=== PATIENT | male | born 1965 | race Caucasian/White ===

== ENCOUNTER 2016-10-16 17:20 | Emergency (ER) | payer OTHER ==
[2016-10-16 17:34] VITALS: RESP 16; TEMP 98.4
[2016-10-16] MEDS ORDERED: TDAP ADULT 0.5 ML INJ (BOOSTRIX) IM ONE (19:21)
--- NOTE | 2016-10-16 19:23 | EDPHY ---
H & P Smoking Status: Never smoked Time Seen by Provider: 10/16/16 17:31 HPI/ROS: CHIEF COMPLAINT: right thumb laceration HISTORY OF PRESENT ILLNESS: 50-year-old male who is [id number] presents with a thumb laceration to his right thumb from the sharp corner of a metal plate just prior to arrival. Tetanus is not up-to-date. He denies numbness or tingling in his hand, no other complaints. (Ruba Quinonez) Physical Exam: GEN: Awake, alert, oriented, no acute distress RESP: nl resp effort MSK: Right thumb with full flexion and extension against resistance at IP and MCP joint, 2 point discrimination intact, cap refill less than 2 seconds SKIN: 0.5 cm superficial laceration palmar aspect of left thumb just proximal to MCP joint (Ruba Quinonez) Constitutional: Initial Vital Signs Temperature (C) 36.9 C 10/16/16 17:31 Heart Rate 73 10/16/16 17:31 Respiratory Rate 16 10/16/16 17:31 Blood Pressure 143/92 H 10/16/16 17:31 O2 Sat (%) 96 10/16/16 17:31 O2 Delivery Mode Room Air Allergies/Adverse Reactions: No Known Allergies Allergy (Verified 10/16/16 17:29) Home Medications: Medication Instructions Recorded Aspirin 03/08/14 Crestor 03/08/14 Toprol Xl 25 mg (RX) 03/08/14 Zetia 10 MG (RX) 03/08/14 Albuterol 10/16/16 Glucosamine & Chondroitin Cap 10/16/16 Multivitamin 10/16/16 Vitamin C 10/16/16 MDM/Departure - [facility] Procedures: Procedure: Laceration repair. Verbal consent was obtained from the patient. The 0.5 cm laceration on the right thumb was anesthetized using 1% lidocaine without epinephrine. The wound was carefully irrigated by the emergency department automotive tire technician. Next, the wound was prepped and draped in sterile fashion and explored to its base with a gloved finger. There were no deep structures involved. No tendon injury was identified. No vascular injury was identified. No foreign bodies were identified. The wound was repaired with 5.0 Prolene, 2 simple interrupted sutures. The wound repair was simple. The procedure was performed by myself. Tetanus and antibiotic status were addressed. (Ruba Quinonez) Medications Given: Discontinued Medications Diphtheria/Tetanus/Acell Pertussis (Boostrix) 0.5 ml IM .ONCE ONE Stop: 10/16/16 19:22 Last Admin: 10/16/16 19:24 Dose: 0.5 ml ED Course/Re-evaluation: The patient wasevaluatedand managed by themidlevel provider. My co-signature indicates that Ihave reviewed this chart and I agree with the findings and plan of care asdocumented. I am the secondary supervisingphysician. (Yris Zamarripa) - Depart Disposition: Home, Routine, Self-Care Clinical Impression: Laceration of right thumb without complication Qualifiers: Encounter type: initial encounter Qualifier Code: (S61.011A) Laceration without foreign body of right thumb without damage to nail, initial encounter Condition: Good Instructions: Finger Laceration (ED) Additional Instructions: Return to the emergency department in 12-14 days for suture removal, return sooner for any signs of infection. Referrals: Hammad Cruz MD [Primary Care Provider] - As per Instructions
[2016-10-16 20:19] VITALS: BP 145/88; PULSE 85; O2SAT 95
== END 2016-10-16 20:00 | disposition home or self-care (01) ==
PROC: 0HQFXZZ Repair Right Hand Skin, External Approach (ICD-10-PCS; principal; 2016-10-16)
DX: S61.011A Laceration without foreign body of right thumb without damage to nail, initial encounter (principal); Z23 Encounter for immunization; Z79.82 Long term (current) use of aspirin; W45.8XXA Other foreign body or object entering through skin, initial encounter